=== PATIENT | female | born 1990 | race African-American/Black ===

== ENCOUNTER 2017-02-05 18:14 | Emergency (ER) | payer SELFPAY ==
[2017-02-05 18:22] VITALS: BP 116/68
[2017-02-05] MEDS ORDERED: Ibuprofen TAB* 400 MG PO ONE (19:25)
[2017-02-05] MEDS ORDERED: Ibuprofen ADULT LIQ* 600 MG/30 ML UDC PO ONE (19:26)
--- NOTE | 2017-02-05 19:29 | UC ---
Respiratory Complaint HPI - HPI Summary HPI Summary: 26 y/o female presents to the urgent care c/o productive cough, sore throat, ALEJO , body aches and chills since this morning. Pt reports sore throat is 9/10 with swallowing. she has not taking anything to alleviate symptoms. Mild fever this morning. The cough started about a week ago and it is now producing a green phlegm. Pt denies SOB, chest pain, N/V/D, abdominal pain, rash or HX of tick bites. she hasn't had the flu vaccine this year. - History of Current Complaint Chief Complaint: UCRespiratory Stated Complaint: CHILLS, HEADACHE, AND ACHES Time Seen by Provider: 02/05/17 18:33 Hx Obtained From: Patient Hx Last Menstrual Period: 01/24/2017 ?: No Onset/Duration: Gradual Onset, Lasting Weeks - 1 week, Worse Since - this morning Timing: Intermittent Episodes Severity Initially: Mild Severity Currently: Moderate Pain Intensity: 9 - sore throat Pain Scale Used: 0-10 Numeric Character: Cough: Productive, Sputum Description: - green sputum Aggravating Factors: Recumbent Position Alleviating Factors: Nothing Associated Signs And Symptoms: Positive: Fever, Chills, URI, Nasal Congestion. Negative: Pleuritic Chest Pain - Risk Factors Pulmonary Embolism Risk Factors: Negative Cardiac Risk Factors: Negative Pseudomonas Risk Factors: Negative Tuberculosis Risk Factors: Negative - Allergies/Home Medications Allergies/Adverse Reactions: Allergies Allergy/AdvReac Type Severity Reaction Status Date / Time Adhesive Tape Allergy Intermediate Rash Verified 02/05/17 18:22 PMH/Surg Hx/FS Hx/Imm Hx Previously Healthy: Yes Respiratory History: Pulmonary Embolism - 2012 - Surgical History Surgical History: Yes Surgery Procedure, Year, and Place: Dec 2010 - Family History Known Family History: Positive: Hypertension, Diabetes - Social History Occupation: Employed Full-time Lives: With Family Alcohol Use: Rare Substance Use Type: Marijuana Smoking Status (MU): Never Smoked Tobacco Review of Systems Constitutional: Fever, Chills Skin: Negative Eyes: Negative ENT: Sore Throat, Nasal Discharge Respiratory: Cough - productive with green sputum Cardiovascular: Negative Gastrointestinal: Negative Genitourinary: Negative Motor: Negative Neurovascular: Negative Musculoskeletal: Negative Neurological: Negative Psychological: Negative Is Patient Immunocompromised?: No All Other Systems Reviewed And Are Negative: Yes Physical Exam Triage Information Reviewed: Yes Vital Signs: Initial Vital Signs Temp 98.7 F 02/05/17 18:19 Pulse 107 02/05/17 18:19 Resp 18 02/05/17 18:19 BP 116/68 02/05/17 18:19 Pulse Ox 100 02/05/17 18:19 - Additional Comments Vital Signs Reviewed: Yes General: well developed, well nourished female sitting in the examining table w/ o any apparent distress Eyes: Positive: Conjunctiva Clear - PERRLA, EOMI, fundi grossly normal ENT: Positive: Normal ENT inspection, Hearing grossly normal, Pharynx normal, Nasal congestion - edematous and erythematous nasal mucosa, Nasal drainage - yellowish drainage, TMs normal. Negative: Tonsillar swelling, Tonsillar exudate Neck: Positive: Supple, Nontender, No Lymphadenopathy Respiratory: no orthopnea or dyspnea. Able to speak in full sentences, no retractions or accessory muscle use, no tripod position, stridor, or head bobbing. breath sound presents, B/L mild rhonchi in the posterior upper lung, no wheezing or rales. Cardiovascular: Positive: RRR, No Murmur, Pulses Normal, Brisk Capillary Refill Abdomen Description: Positive: Nontender, No Organomegaly, Soft. Negative: CVA Tenderness (R), CVA Tenderness (L) Bowel Sounds: Positive: Present Musculoskeletal Exam: Normal Musculoskeletal: Positive: Strength Intact, ROM Intact, No Edema Neurological Exam: Normal Psychological Exam: Normal Skin Exam: Normal UC Diagnostic Evaluation - Laboratory O2 Sat by Pulse Oximetry: 100 Respiratory Course/Dx - Course Course Of Treatment: 26 y/o female presents to the urgent care c/o productive cough, sore throat, ALEJO, body aches and chills since this morning. Pt reports sore throat is 9/10 with swallowing. she has not taking anything to alleviate symptoms. Mild fever this morning. The cough started about a week ago and it is now producing a green phlegm. Pt denies SOB, chest pain, N/V/D, abdominal pain, rash or HX of tick bites. she hasn't had the flu vaccine this year.Hx obtained. Pt with scattered rochi in the posterior upper lungs on examination.Pt with Acute bronchitis on examination. Pt given Ibuprofen PO to alleviate pain at the clinic. pt tolerated well medication and pain decrease. Rapid strep: negative, Influenza A&B : negative. Pt Rx Z-felipe PO and Tessalon PO alleviate cough and Ibuprofen PO sot pharyngitis. Pt advised to increase fluid intake and eat well. if not improvement or worsening of symptoms to return to the urgent care or f/u with PCP for further management. pt understood and agreed with plan of care. - Differential Dx/Diagnosis Differential Diagnosis/HQI/PQRI: Asthma, Bronchitis, Pulmonary Edema, Influenza , Laryngitis, Lower Resp Infection, Sinusitis Provider Diagnoses: 1- Acute bronchitis. 2-Acute pharyngitis Discharge - Discharge Plan Condition: Stable Disposition: HOME Prescriptions: Azithromyxin FELIPE (NF) [Z-Felipe (Zithromax) 250 mg tabs #6] 2 tab PO .TODAY, THEN 1 DAILY #6 tab Benzonatate CAP* [Tessalon 100 MG CAP*] 100 mg PO TID PRN #15 cap PRN Reason: Cough Ibuprofen TAB* [Motrin TAB* 800 MG] 800 mg PO Q6H PRN #20 tab PRN Reason: Pain Patient Education Materials: Acute Bronchitis (ED) Referrals: [facility] [place] [facility] [Outside] - 3 Days Additional Instructions: 1-Please take full course of antibiotic to avoid resistance. 2-Take Tessalon PO tabs as directed to alleviate cough. Increase fluid intake, rest and eat well. 3- Take Ibuprofen PO q6-8hrs prn after meals to alleviate sore throat 3- If symptoms do not improve or worsen or your develop SOB with fever and please go immediately to the ER further evaluation and treatment. 4- F/u with your PCP in 2-3 days for further management if symptoms are not improving
--- NOTE | 2017-02-05 19:59 | RAD ---
HISTORY: Cough, fever COMPARISONS: February 02, 2011 VIEWS: 4: Frontal dual-energy and lateral views of the chest. FINDINGS: CARDIOMEDIASTINAL SILHOUETTE: The cardiomediastinal silhouette is normal. TOMMY: The tommy are normal. PLEURA: The costophrenic angles are sharp. No pleural abnormalities are noted. LUNG PARENCHYMA: The lungs are clear. ABDOMEN: The upper abdomen is clear. There is no subphrenic gas. BONES AND SOFT TISSUES: No bone or soft tissue abnormalities are noted. OTHER: None. IMPRESSION: NO ACTIVE CARDIOPULMONARY DISEASE.
== END 2017-02-05 20:17 | disposition home or self-care (01) ==
LOC: UCEAST 18:14
DX: J20.9 Acute bronchitis, unspecified (principal); J02.9 Acute pharyngitis, unspecified; Z32.02 Encounter for pregnancy test, result negative; Z86.711 Personal history of pulmonary embolism; Z91.048 Other nonmedicinal substance allergy status; F12.90 Cannabis use, unspecified, uncomplicated
CPT/HCPCS: 71020; 84702; 87502; 87651; 99212; A9270-GY; G0463

== ENCOUNTER 2017-11-09 14:13 | Emergency (ER) | payer OTHER ==
--- NOTE | 2017-11-09 16:30 | RAD ---
INDICATION: Right foot and ankle pain after twisting injury the previous night COMPARISON: None. TECHNIQUE: 3 views of the right ankle and 3 views of the right foot were obtained. FINDINGS: The bones are normal alignment. Joint spaces appear maintained. No fracture is seen. IMPRESSION: NO RADIOGRAPHICALLY APPARENT FRACTURE OR DISLOCATION OF THE RIGHT FOOT OR ANKLE. If the patient's symptoms persist, follow-up imaging is recommended.
--- NOTE | 2017-11-09 17:07 | ED ---
Lower Extremity - HPI Summary HPI Summary: This patient is a 27 year old F presenting to ED with a chief complaint of R foot swelling with pain since last night around 0000 s/p twisting her foot outwards. The patient rates the pain 6/10 in severity. Symptoms aggravated by ambulation. Symptoms alleviated by nothing. The patient reports she is unable to bear weight on her foot. - History of Current Complaint Chief Complaint: EDExtremityLower Stated Complaint: RIGHT FOOT INJURY Time Seen by Provider: 11/09/17 15:43 Hx Obtained From: Patient Hx Last Menstrual Period: 01/24/2017 Mechanism Of Injury: Twisted Onset of Pain: Immediate Onset/Duration: Still Present - since last night s/p twisting her foot Severity Initially: Moderate Severity Currently: Moderate Pain Intensity: 6 Pain Scale Used: 0-10 Numeric Timing: Constant, Lasting Days Location: Is Discrete @ - R foot Associated Signs And Symptoms: Positive: Swelling - with pain Aggravating Factor(s): Ambulation Alleviating Factor(s): Nothing Able to Bear Weight: No - Allergies/Home Medications Allergies/Adverse Reactions: Allergies Allergy/AdvReac Type Severity Reaction Status Date / Time Adhesive Tape Allergy Intermediate Rash Verified 02/05/17 18:22 PMH/Surg Hx/FS Hx/Imm Hx Endocrine/Hematology History: Denies: Hx Diabetes, Hx Thyroid Disease Cardiovascular History: Denies: Hx Hypertension Respiratory History: Denies: Hx Asthma, Hx Chronic Obstructive Pulmonary Disease (COPD) GI History: Denies: Hx Ulcer - Surgical History Surgery Procedure, Year, and Place: Dec 2010 Infectious Disease History: No Infectious Disease History: Denies: Hx Hepatitis, Hx Human Immunodeficiency Virus (HIV), Traveled Outside the [place] in Last 30 Days - Family History Known Family History: Positive: Hypertension, Diabetes - Social History Alcohol Use: Rare Substance Use Type: Reports: Marijuana Hx Tobacco Use: Yes Smoking Status (MU): Never Smoked Tobacco Review of Systems Negative: Fever Positive: Other - R foot swelling with pain All Other Systems Reviewed And Are Negative: Yes Physical Exam - Summary Physical Exam Summary: Appearance: The patient is well-nourished in no acute distress and in no acute pain. Skin: The skin is warm and dry and skin color reflects adequate perfusion. HEENT: The head is normocephalic and atraumatic. The pupils are equal and reactive. The conjunctivae are clear and without drainage. Nares are patent and without drainage. Mouth reveals moist mucous membranes and the throat is without erythema and exudate. The external ears are intact. The ear canals are patent and without drainage. The tympanic membranes are intact. Neck: The neck is supple with full range of motion and non-tender. There are no carotid bruits. There is no neck vein distension. Respiratory: Chest is non-tender. Lungs are clear to auscultation and breath sounds are symmetrical and equal. Cardiovascular: Heart is regular rate and rhythm. There is no murmur or rub auscultated. Pulses are symmetrical and equal. Abdomen: The abdomen is soft and non-tender. There are normal bowel sounds heard in all four quadrants and there is no organomegaly palpated. Musculoskeletal: There is no back tenderness noted. There is good capillary refill. There is no calf tenderness elicited. Tenderness to lateral border of her R foot. Neurological: Patient is alert and oriented to person, place and time. The patient has symmetrical motor strength in all four extremities. Cranial nerves are grossly intact. Deep tendon reflexes are symmetrical and equal in all four extremities. Psychiatric: The patient has an appropriate affect and does not exhibit any anxiety or depression. Triage Information Reviewed: Yes Vital Signs On Initial Exam: Initial Vitals Temp Pulse Resp BP Pulse Ox 96.9 F 87 14 113/80 97 11/09/17 14:17 11/09/17 14:17 11/09/17 14:17 11/09/17 14:17 11/09/17 14:17 Vital Signs Reviewed: Yes Diagnostics - Vital Signs Vital Signs Temp Pulse Resp BP Pulse Ox 11/09/17 14:17 96.9 F 87 14 113/80 97 - Laboratory Lab Statement: Any lab studies that have been ordered have been reviewed, and results considered in the medical decision making process. - Radiology R foot XR Radiology Interpretation Completed By: Radiologist - NO RADIOGRAPHICALLY APPARENT FRACTURE OR DISLOCATION OF THE RIGHT FOOT OR ANKLE. ED physician has reviewed this radiology report. R ankle XR Radiology Interpretation Completed By: Radiologist - NO RADIOGRAPHICALLY APPARENT FRACTURE OR DISLOCATION OF THE RIGHT FOOT OR ANKLE. ED physician has reviewed this radiology report. Lower Extremity Course/Dx - Course Course Of Treatment: Ms. Patel presented after having twisted her foot yesterday. She finds it hard to walk flat on her foot but is able to walk on her toes. She had mild tenderness and swelling on the lateral aspect of the foot and an x-ray was negative for fracture. She is placed in an Leonardo wrap and given crutches and recommended follow-up with her PCP. - Diagnoses Differential Diagnosis/HQI/PQRI: Positive: Other - foot sprain Provider Diagnoses: Foot sprain Discharge - Sign-Out/Discharge Documenting (check all that apply): Patient Departure - Discharge - Discharge Plan Condition: Stable Disposition: HOME Patient Education Materials: Crutch Instructions (ED), Foot Sprain (ED) Referrals: [facility] [Outside] (Please follow up with your primary care physician in 2-3 days.) Additional Instructions: Please follow up with your primary care physician in 2-3 days. RETURN TO THE ED FOR ANY NEW OR WORSENING SYMPTOMS. - Billing Disposition and Condition Condition: STABLE Disposition: Home - Attestation Statements Document Initiated by Scribe: Yes Documenting Scribe: Thor Lowe Provider For Whom Scribe is Documenting (Include Credential): Bryant Vee MD Scribe Attestation: Thor Daniels, scribed for Bryant Vee MD on 11/09/17 at 2111. Scribe Documentation Reviewed: Yes Provider Attestation: The documentation as recorded by the Thor pedro accurately reflects the service I personally performed and the decisions made by me, Bryant Vee MD
[2017-11-09 17:44] VITALS: BP 120/78
== END 2017-11-09 17:43 | disposition home or self-care (01) ==
LOC: ED 14:13
DX: S93.601A Unspecified sprain of right foot, initial encounter (principal); X50.1XXA Overexertion from prolonged static or awkward postures, initial encounter; Y93.9 Activity, unspecified; Y92.9 Unspecified place or not applicable; Z91.048 Other nonmedicinal substance allergy status
CPT/HCPCS: 99282

== ENCOUNTER 2017-12-30 16:56 | Emergency (ER) | payer OTHER ==
[2017-12-30 17:12] VITALS: BP 116/78
--- NOTE | 2017-12-30 17:15 | UC ---
Respiratory Complaint HPI - HPI Summary HPI Summary: 27 yo female presents with fever, sinus pain/pressure/congestion, post nasal drip, and dry cough for the last 4 days. She has felt feverish, but has not taken her temperature. She has been taking tylenol and ibuprofen with no relief of her symptoms. Denies chills, sore throat, SOB, chest pain, abdominal pain, n/ v. - History of Current Complaint Chief Complaint: UCRespiratory Stated Complaint: FEVER, HEADACHE, AND CHEST CONGESTION Time Seen by Provider: 12/30/17 17:14 Hx Obtained From: Patient Hx Last Menstrual Period: 12/16/17 Onset/Duration: Gradual Onset Severity Initially: Moderate Severity Currently: Moderate Pain Intensity: 7 Pain Scale Used: 0-10 Numeric Character: Cough: Nonproductive - Allergies/Home Medications Allergies/Adverse Reactions: Allergies Allergy/AdvReac Type Severity Reaction Status Date / Time Adhesive Tape Allergy Intermediate Rash Verified 12/30/17 17:12 PMH/Surg Hx/FS Hx/Imm Hx - Additional Past Medical History Additional PMH: PE - Surgical History Surgical History: Yes Surgery Procedure, Year, and Place: Dec 2010 - Family History Known Family History: Positive: Hypertension, Diabetes - Social History Occupation: Employed Full-time Lives: With Family Alcohol Use: Rare Substance Use Type: Marijuana Smoking Status (MU): Never Smoked Tobacco Review of Systems Constitutional: Negative Skin: Negative Eyes: Negative ENT: Nasal Discharge, Sinus Congestion, Sinus Pain/Tenderness Respiratory: Cough Cardiovascular: Negative Gastrointestinal: Negative Neurovascular: Negative Musculoskeletal: Negative Neurological: Negative Psychological: Negative All Other Systems Reviewed And Are Negative: Yes Physical Exam - Summary Physical Exam Summary: GENERAL: NAD. WDWN. No pain distress. SKIN: No rashes, sores, lesions, or open wounds. HEENT: Head: AT/NC Eyes: EOM intact. Conjunctiva clear without inflammation or discharge. Ears: Hearing grossly normal. TMs intact, no bulging, erythema, or edema. Nose: Nasal mucosa mildly swollen and erythematous with yellow discharge. TTP maxillary and frontal sinus. Positive post nasal drip Throat: Posterior oropharynx without exudates, erythema, or tonsillar enlargement. Uvula midline. NECK: Supple. Nontender. No lymphadenopathy. CHEST: CTAB. No r/r/w. No accessory muscle use. Breathing comfortably and in no distress. CV: RRR. Without m/r/g. Pulses intact. NEURO: Alert. PSYCH: Age appropriate behavior. Triage Information Reviewed: Yes Vital Signs: Initial Vital Signs Temp 98.1 F 12/30/17 17:03 Pulse 88 12/30/17 17:03 Resp 18 12/30/17 17:03 BP 116/78 12/30/17 17:03 Pulse Ox 100 12/30/17 17:03 Vital Signs Reviewed: Yes Diagnostic Evaluation - Laboratory O2 Sat by Pulse Oximetry: 100 Respiratory Course/Dx - Course Course Of Treatment: Sinusitis - Differential Dx/Diagnosis Provider Diagnoses: sinusitis Discharge - Sign-Out/Discharge Documenting (check all that apply): Patient Departure All imaging exams completed and their final reports reviewed: No Studies - Discharge Plan Condition: Stable Disposition: HOME Prescriptions: Amoxicillin PO (*) [Amoxicillin 875 MG (*)] 875 mg PO BID #14 tab Patient Education Materials: Sinusitis (ED) Forms: *Work Release Referrals: No Primary Care Phys,NOPCP [Primary Care Provider] - Additional Instructions: If you develop a fever, shortness of breath, chest pain, new or worsening symptoms - please call your PCP or go to the ED. 1) Please try Mucinex over the counter in addition the tylenol and ibuprofen - Billing Disposition and Condition Condition: STABLE Disposition: Home - Attestation Statements Provider Attestation: Per institutional requirements, I have reviewed the chart, however, I was not consulted specifically or made aware of this patient by the midlevel provider. I did not personally evaluate, interact with , or disposition this patient.
== END 2017-12-30 17:25 | disposition home or self-care (01) ==
LOC: UCEAST 16:56
DX: J01.90 Acute sinusitis, unspecified (principal)
CPT/HCPCS: 99212; G0463

== ENCOUNTER → 2018-03-23 15:15 | Emergency (ER) | payer OTHER ==
[~2018-03-23 15:15] MED LIST: HYDROcodone/ACETAMIN 5-325 MG* 1 TAB PO ONE; Iohexol 300* (CONTRAST) 10 ML SDV IV ONE; NS 0.9% 1000 ML** 1,000 ML IV ONE; Ondansetron INJ* 2 MG/ML VIAL IV ONE; Ondansetron ODT TAB* 4 MG PO ONE; Potassium Chlor TAB* 20 MEQ TAB.ER PO ONE; Sulfamethox/Trimethoprim DS 800/160* TAB PO ONE
[2018-03-23 17:33] LABS: ALT 12 U/L (7-52); AST 16 U/L (13-39); Albumin 4.5 g/dL (3.2-5.2); Alkaline Phosphatase 73 U/L (34-104); Anion Gap 8 mmol/L (2-11); BUN/Creatinine Ratio 8.1 (8-20); Blood Urea Nitrogen 6 mg/dL (6-24); C Reactive Protein 106.02 mg/L (<8.01); CO2 Carbon Dioxide 26 mmol/L (22-32); Calcium 9.4 mg/dL (8.6-10.3); Chloride 101 mmol/L (101-111); EGFR African American 113.9 (>60); EGFR Non-African American 94.1 (>60); Globulin 4.4 g/dL (2-4); Glucose 104 mg/dL (70-100); HCG Pregnancy < 0.60 mIU/mL; Potassium 3.1 mmol/L (3.5-5.0); Sodium 135 mmol/L (135-145); Total Protein 8.9 g/dL (6.4-8.9)
[2018-03-23 17:44] LABS: Hematocrit 32 % (35-47); Hemoglobin 9.9 g/dl (12.0-16.0); Mean Corpuscular HGB Conc 31 g/dl (31-36); Mean Corpuscular Hemoglobin 19 pg (27-31); Mean Corpuscular Volume 60 fL (80-97); Mean Platelet Volume 8.8 fL (7.4-10.4); Platelet Count 210 10^3/ul (150-450); Red Cell Distribution Width 23 % (10.5-15); White Blood Count 18.7 10^3/ul (3.5-10.8)
[2018-03-23 17:47] LABS: Lymphocytes % 30 %; Monocytes % 5 %; Neutrophil % 65 %
[2018-03-23 17:48] LABS: Microcytosis 2+; Polychromasia 1+
[2018-03-23 17:50] LABS: ABS Basophils 0.1 10^3/ul (0-0.2); ABS Eosinophils 0 10^3/ul (0-0.6); ABS Lymphocytes 5.7 10^3/ul (1.0-4.8); ABS Monocytes 0.8 10^3/ul (0-0.8); ABS Neutrophils 12.1 10^3/ul (1.5-7.7); ABS Nucleated RBC 0 10^3/ul; Nucleated Red Blood Cells % 0.1
--- NOTE | 2018-03-23 19:09 | ED ---
Abdominal Pain/Female - HPI Summary HPI Summary: Patient is a 27 y/o F presenting to ED with complaints of abdominal pain. She states that pain onset three days at left side of abdomen and has since started to radiate to back and across upper abdomen. No diarrhea, but she endorses N/V. She reports increased frequency of urination and decreased appetite as well. Patient notes having a fever yesterday but states that it has since resolved. PSHx of section x4. On triage, pain is rated 8/10. Nothing is noted to aggravate/alleviate Sx. Home medications and allergies are reviewed. - History of Current Complaint Chief Complaint: EDAbdPain Stated Complaint: BI LATERAL FLANK PAIN Time Seen by Provider: 03/23/18 18:59 Hx Obtained From: Patient Hx Last Menstrual Period: 12/16/17 Onset/Duration: Lasting Days - three, Still Present, Resolved - fever Timing: Constant - three days Severity Currently: Severe - 8/10 Pain Intensity: 8 Pain Scale Used: 0-10 Numeric - 8/10 Location: Other - left side Radiates: Yes Radiates to: Back, Other - across upper abdomen Aggravating Factor(s): Nothing Alleviating Factor(s): Nothing Associated Signs and Symptoms: Positive: Fever - since resolved, Back Pain, Urinary Symptoms - increased frequency, Decreased Appetite, Nausea, Vomiting. Negative: Diarrhea Allergies/Adverse Reactions: Allergies Allergy/AdvReac Type Severity Reaction Status Date / Time Adhesive Tape Allergy Intermediate Rash Verified 03/23/18 15:27 Home Medications: Home Medications NK [No Home Medications Reported] 03/23/18 [History Confirmed 03/23/18] PMH/Surg Hx/FS Hx/Imm Hx Endocrine/Hematology History: Denies: Hx Diabetes, Hx Thyroid Disease Cardiovascular History: Denies: Hx Hypertension Respiratory History: Denies: Hx Asthma, Hx Chronic Obstructive Pulmonary Disease (COPD) GI History: Denies: Hx Ulcer - Surgical History Surgery Procedure, Year, and Place: Dec 2010 Infectious Disease History: No Infectious Disease History: Denies: Hx Hepatitis, Hx Human Immunodeficiency Virus (HIV), Traveled Outside the [place] in Last 30 Days - Family History Known Family History: Positive: Hypertension, Diabetes Negative: Cardiac Disease - Social History Alcohol Use: Rare Hx Substance Use: Yes Substance Use Type: Reports: Marijuana Hx Tobacco Use: Yes Smoking Status (MU): Never Smoked Tobacco Review of Systems Positive: Fever - since resolved Positive: Abdominal Pain - with radiation to back , Vomiting, Nausea, Other - POSITIVE - DECREASED APPETITE . Negative: Diarrhea Positive: frequency - increased All Other Systems Reviewed And Are Negative: Yes Physical Exam - Summary Physical Exam Summary: Appearance: Well appearing, no pain distress Skin: warm, dry, reflects adequate perfusion Head/face: normal Eyes: EOMI, ANDERS ENT: normal Neck: supple, non-tender Respiratory: CTA, breath sounds present Cardiovascular: RRR, pulses symmetrical Abdomen: RLQ tenderness, soft Musculoskeletal: normal, strength/ROM intact Neuro: normal, sensory motor intact, A&Ox3 Triage Information Reviewed: Yes Vital Signs On Initial Exam: Initial Vitals Temp Pulse Resp BP Pulse Ox 98.4 F 99 16 122/79 99 03/23/18 15:23 03/23/18 15:23 03/23/18 15:23 03/23/18 15:23 03/23/18 15:23 Vital Signs Reviewed: Yes Diagnostics - Vital Signs Vital Signs Temp Pulse Resp BP Pulse Ox 03/23/18 17:35 100 F 99 16 118/79 100 03/23/18 15:23 98.4 F 99 16 122/79 99 - Laboratory Lab Results: Lab Results 03/23/18 03/23/18 03/23/18 Range/Units 16:46 16:46 16:46 WBC 18.7 H (3.5-10.8) 10^3/ul RBC 5.30 (4.00-5.40) 10^6/ul Hgb 9.9 L (12.0-16.0) g/dl Hct 32 L (35-47) % MCV 60 L (80-97) fL MCH 19 L (27-31) pg MCHC 31 (31-36) g/dl RDW 23 H (10.5-15) % Plt Count 210 (150-450) 10^3/ul MPV 8.8 (7.4-10.4) fL Neut % (Auto) Not Reportable Lymph % (Auto) Not Reportable Collin % (Auto) Not Reportable Eos % (Auto) Not Reportable Baso % (Auto) Not Reportable Absolute Neuts (auto) 12.1 H (1.5-7.7) 10^3/ul Absolute Lymphs (auto) 5.7 H (1.0-4.8) 10^3/ul Absolute Monos (auto) 0.8 (0-0.8) 10^3/ul Absolute Eos (auto) 0 (0-0.6) 10^3/ul Absolute Basos (auto) 0.1 (0-0.2) 10^3/ul Absolute Nucleated RBC 0 10^3/ul Neutrophils % 65 % Lymphocytes % 30 % Monocytes % 5 % Nucleated RBC % 0.1 Normal RBC Morphology Not Reportable Polychromasia 1+ Anisocytosis 2+ Microcytosis 2+ Hem Pathologist Commnt Pending Sodium 135 (135-145) mmol/L Potassium 3.1 L (3.5-5.0) mmol/L Chloride 101 (101-111) mmol/L Carbon Dioxide 26 (22-32) mmol/L Anion Gap 8 (2-11) mmol/L BUN 6 (6-24) mg/dL Creatinine 0.74 (0.51-0.95) mg/dL Est GFR ( Amer) 113.9 (>60) Est GFR (Non-Af Amer) 94.1 (>60) BUN/Creatinine Ratio 8.1 (8-20) Glucose 104 H (70-100) mg/dL Lactic Acid 1.0 (0.5-2.0) mmol/L Calcium 9.4 (8.6-10.3) mg/dL Total Bilirubin 0.60 (0.2-1.0) mg/dL AST 16 (13-39) U/L ALT 12 (7-52) U/L Alkaline Phosphatase 73 (34-104) U/L C-Reactive Protein 106.02 H (<8.01) mg/L Total Protein 8.9 (6.4-8.9) g/dL Albumin 4.5 (3.2-5.2) g/dL Globulin 4.4 H (2-4) g/dL Albumin/Globulin Ratio 1.0 (1-3) Lipase < 10 L (11.0-82.0) U/L Beta HCG, Quant < 0.60 mIU/mL Result Diagrams: 03/23/18 16:46 03/23/18 16:46 Lab Statement: Any lab studies that have been ordered have been reviewed, and results considered in the medical decision making process. - Radiology CXR Radiology Interpretation Completed By: ED Physician Summary of Radiographic Findings: No acute disease, pending official report. Abdominal Pain Fem Course/Dx - Course Course Of Treatment: Patient is a 27 y/o F presenting to ED with complaints of abdominal pain. She states that pain onset three days at left side of abdomen and has since started to radiate to back and across upper abdomen. No diarrhea, but she endorses N/V. She reports increased frequency of urination and decreased appetite as well. Patient notes having a fever yesterday but states that it has since resolved. PSHx of section x4. On physical exam, RLQ tenderness is noted. CXR showed no acute disease, pending official report. Bloodwork was obtained. During ED course, patient received fluids, Klor Con Er Tab 40 meq PO, Zofran 4 mg IV. Patient is signed out to HAVEN Handley pending CT ABD/PEL, UA and disposition. - Diagnoses Provider Diagnoses: Abdominal pain Discharge - Sign-Out/Discharge Documenting (check all that apply): Sign-Out Patient Signing out patient TO: Sanket Handley Receiving patient FROM: Lois Quigley - Discharge Plan Condition: Stable Referrals: No Primary Care Phys,NOPCP [Primary Care Provider] - - Billing Disposition and Condition Condition: STABLE - Attestation Statements Document Initiated by Hortenciaibjaspal: Yes Documenting Scribe: WILSON KING Provider For Whom Shannon is Documenting (Include Credential): LOIS QUIGLEY MD Scribe Attestation: WILSON Daniels , scribed for LOIS QUIGLEY MD on 03/23/18 at 2139. Scribe Documentation Reviewed: Yes Provider Attestation: The documentation as recorded by the WILSON pedro accurately reflects the service I personally performed and the decisions made by , LOIS QUIGLEY MD Status of Scribe Document: Viewed
[2018-03-23 22:24] LABS: Urine Appearance Cloudy; Urine Bacteria 1+ (Absent); Urine Bilirubin Negative (Negative); Urine Blood Negative (Negative); Urine Color Yellow; Urine Glucose Negative (Negative); Urine Ketones Negative (Negative); Urine Nitrite Positive (Negative); Urine Protein 2+(100 mg/dL) (Negative); Urine Red Blood Cell Absent (Absent); Urine Specific Gravity 1.012 (1.010-1.030); Urine Squamous Epithelial Cell Present (Absent); Urine Urobilinogen Positive (Negative); Urine White Blood Cell 3+(>20/hpf) (Absent)
--- NOTE | 2018-03-23 22:56 | PN ---
Progress Note - Progress Note Date of Service: 03/23/18 Note: Patient signed out to me by Dr. Alberts pending results of urine analysis and CT abdomen. Positive UTI. Patient opted to defer CT abdomen and pelvis with contrast until after trial of antibiotics for UTI. Cultures pending. Rx for Bactrim, Phenergan and hydrocodone for abdominal pain. Vital signs within normal limits. Patient discharged in stable condition with diagnosis of UTI.
[2018-03-23 23:26] VITALS: BP 123/79
== END | disposition home or self-care (01) ==
LOC: ED 15:15
DX: R10.84 Generalized abdominal pain (principal); R50.9 Fever, unspecified; R11.2 Nausea with vomiting, unspecified
CPT/HCPCS: 36415; 71046; 80053; 81003; 81015; 83605; 83690; 84702; 85025; 85060; 86140; 87077; 87086; 87186; 96361; 96374; 96375; 99283; A9270-GY; J2405

== ENCOUNTER 2018-08-12 22:31 | Emergency (ER) | payer OTHER ==
[2018-08-12] MEDS ORDERED: Metoclopramide IV* 5 MG/ML 2 ML VIAL IV SLOW PU ONE (23:04)
[2018-08-12] MEDS ORDERED: NS 0.9% 1000 ML** 1,000 ML IV ONE (23:04)
[2018-08-12 23:23] LABS: Hematocrit 26 % (35-47); Hemoglobin 8.2 g/dL (12.0-16.0); Mean Corpuscular HGB Conc 32 g/dL (31-36); Mean Corpuscular Hemoglobin 18 pg (27-31); Mean Corpuscular Volume 56 fL (80-97); Mean Platelet Volume 8.7 fL (7.4-10.4); Platelet Count 149 10^3/uL (150-450); Red Blood Count 4.61 10^6 /uL (3.70-4.87); Red Cell Distribution Width 22 % (10-15); White Blood Count 10.7 10^3/uL (3.5-10.8)
[2018-08-12 23:32] LABS: ALT 10 U/L (7-52); AST 16 U/L (13-39); Albumin/Globulin Ratio 1.2 (1-3); Alkaline Phosphatase 54 U/L (34-104); Anion Gap 5 mmol/L (2-11); Blood Urea Nitrogen 10 mg/dL (6-24); C Reactive Protein < 1.00 mg/L (<8.01); CO2 Carbon Dioxide 28 mmol/L (22-32); Calcium 9.1 mg/dL (8.6-10.3); Chloride 106 mmol/L (101-111); EGFR Non-African American 81.9 (>60); Globulin 3.3 g/dL (2-4); Glucose 114 mg/dL (70-100); Potassium 3.3 mmol/L (3.5-5.0); Sodium 139 mmol/L (135-145); Total Protein 7.3 g/dL (6.4-8.9)
[2018-08-12 23:38] LABS: HCG Pregnancy < 0.60 mIU/mL
[2018-08-12] MEDS ORDERED: Pantoprazole IV* 40 MG IV ONE (23:40)
--- NOTE | 2018-08-13 00:14 | ED ---
GI/ HPI - HPI Summary HPI Summary: 28-year-old female presents with epigastric pain for the past week. She states she's been having nausea and vomiting. No diarrhea. Has not eating anything different. No one else is sick. She is concerned that she is . Denies any abnormal vaginal discharge. No vaginal bleeding. LMP was beginning of this month. She denies any blood or dark tarry stool. Pain does not radiate anywhere. States pain is achy pain. - History of Current Complaint Chief Complaint: EDAbdPain Time Seen by Provider: 08/12/18 22:54 Stated Complaint: ABD PAIN/VOMITING PER PT Hx Last Menstrual Period: 12/16/17 Pain Intensity: 4 - Allergy/Home Medications Allergies/Adverse Reactions: Allergies Allergy/AdvReac Type Severity Reaction Status Date / Time Adhesive Tape Allergy Intermediate Rash Verified 03/23/18 15:27 PMH/Surg Hx/FS Hx/Imm Hx Endocrine/Hematology History: Denies: Hx Diabetes, Hx Thyroid Disease Cardiovascular History: Denies: Hx Hypertension Respiratory History: Denies: Hx Asthma, Hx Chronic Obstructive Pulmonary Disease (COPD) GI History: Denies: Hx Ulcer History: Denies: Hx Renal Disease - Surgical History Surgery Procedure, Year, and Place: Dec 2010 - Immunization History Immunizations Up to Date: Yes Infectious Disease History: No Infectious Disease History: Denies: Hx Hepatitis, Hx Human Immunodeficiency Virus (HIV), Traveled Outside the [place] in Last 30 Days - Family History Known Family History: Positive: Hypertension, Diabetes Negative: Cardiac Disease - Social History Alcohol Use: Rare Hx Substance Use: Yes Substance Use Type: Reports: Marijuana Hx Tobacco Use: Yes Smoking Status (MU): Never Smoked Tobacco Review of Systems Negative: Fever Negative: Chest Pain Negative: Shortness Of Breath Positive: Abdominal Pain, Vomiting, Nausea. Negative: Diarrhea All Other Systems Reviewed And Are Negative: Yes Physical Exam Triage Information Reviewed: Yes Vital Signs On Initial Exam: Initial Vitals Temp Pulse Resp BP Pulse Ox 97.7 F 105 18 136/85 99 08/12/18 22:41 08/12/18 22:41 08/12/18 22:41 08/12/18 22:41 08/12/18 22:41 Vital Signs Reviewed: Yes Appearance: Positive: Well-Appearing Skin: Positive: Warm, Dry Head/Face: Positive: Normal Head/Face Inspection Eyes: Positive: Normal, Conjunctiva Clear ENT: Positive: Pharynx normal Respiratory/Lung Sounds: Positive: Clear to Auscultation, Breath Sounds Present Cardiovascular: Positive: Normal, RRR Abdomen Description: Positive: Soft, Other: - tenderness epigastric, nontender RUQ Bowel Sounds: Positive: Present Musculoskeletal: Positive: Normal Neurological: Positive: Normal Psychiatric: Positive: Normal Diagnostics - Vital Signs Vital Signs Temp Pulse Resp BP Pulse Ox 08/13/18 00:00 72 99 08/12/18 23:52 68 126/81 100 08/12/18 23:22 74 131/86 100 08/12/18 23:00 74 99 08/12/18 22:52 84 127/75 99 08/12/18 22:51 86 99 08/12/18 22:41 97.7 F 105 18 136/85 99 - Laboratory Lab Results: Lab Results 08/12/18 08/12/18 Range/Units 23:07 23:07 WBC 10.7 (3.5-10.8) 10^3/uL RBC 4.61 (3.70-4.87) 10^6 /uL Hgb 8.2 L (12.0-16.0) g/dL Hct 26 L (35-47) % MCV 56 L (80-97) fL MCH 18 L (27-31) pg MCHC 32 (31-36) g/dL RDW 22 H (10-15) % Plt Count 149 L (150-450) 10^3/uL MPV 8.7 (7.4-10.4) fL Neut % (Auto) Pending Lymph % (Auto) Pending Kidder % (Auto) Pending Eos % (Auto) Pending Baso % (Auto) Pending Absolute Neuts (auto) Pending Absolute Lymphs (auto) Pending Absolute Monos (auto) Pending Absolute Eos (auto) Pending Absolute Basos (auto) Pending Absolute Nucleated RBC Pending Nucleated RBC % Pending Sodium 139 (135-145) mmol/L Potassium 3.3 L (3.5-5.0) mmol/L Chloride 106 (101-111) mmol/L Carbon Dioxide 28 (22-32) mmol/L Anion Gap 5 (2-11) mmol/L BUN 10 (6-24) mg/dL Creatinine 0.83 (0.51-0.95) mg/dL Est GFR ( Amer) 99.0 (>60) Est GFR (Non-Af Amer) 81.9 (>60) BUN/Creatinine Ratio 12.0 (8-20) Glucose 114 H (70-100) mg/dL Calcium 9.1 (8.6-10.3) mg/dL Total Bilirubin 0.40 (0.2-1.0) mg/dL AST 16 (13-39) U/L ALT 10 (7-52) U/L Alkaline Phosphatase 54 (34-104) U/L C-Reactive Protein < 1.00 (<8.01) mg/L Total Protein 7.3 (6.4-8.9) g/dL Albumin 4.0 (3.2-5.2) g/dL Globulin 3.3 (2-4) g/dL Albumin/Globulin Ratio 1.2 (1-3) Lipase 19 (11.0-82.0) U/L Beta HCG, Quant < 0.60 mIU/mL Result Diagrams: 08/12/18 23:07 08/12/18 23:07 Lab Statement: Any lab studies that have been ordered have been reviewed, and results considered in the medical decision making process. Re-Evaluation - Re-Evaluation First Eval Re-Evaluation Time: 00:10 Change: Improved Comment: pain better GIGU Course/Dx - Course Course Of Treatment: 28-year-old female presents with epigastric pain for the past week. She states she's been having nausea and vomiting. No diarrhea. Has not eating anything different. No one else is sick. She is concerned that she is . Denies any abnormal vaginal discharge. No vaginal bleeding. LMP was beginning of this month. She denies any blood or dark tarry stool. Pain does not radiate anywhere. States pain is achy pain. On exam tenderness left upper quadrant. wbc normal. crp normal. hemoglobin 8 and patient states has anemia and is suppose to take iron but is not take it. Told to continue iron. Patient is not . Gave Reglan and omeprazole and feeling better. We'll give Zofran omeprazole to take at home. Told to follow with GI if no improvement. Patient understands agrees with plan. - Diagnoses Differential Diagnoses - Female: Gastritis, Gastroenteritis (Viral), , Urinary Tract Infection Provider Diagnoses: Epigastric pain Discharge - Sign-Out/Discharge Documenting (check all that apply): Patient Departure Patient Received Moderate/Deep Sedation with Procedure: No - Discharge Plan Condition: Good Disposition: HOME Prescriptions: Omeprazole CAP(NF) [PriLOSEC CAP(NF)] 10 mg PO DAILY #14 cap Ondansetron ODT TAB* [Zofran 4 MG Odt TAB*] 4 mg PO Q6H PRN #20 tab.odt PRN Reason: Pain Patient Education Materials: Epigastric Pain (ED) Referrals: No Primary Care Phys,NOPCP [Primary Care Provider] - Judy Suarez MD [Medical Doctor] - Additional Instructions: Take omeprazole once a day Take Zofran every 6 hours as needed for nausea Avoid acidic foods Stay upright for at least 30 mins after eating Follow up with GI if no improvement Return to ED if develop any new or worsening symptoms - Billing Disposition and Condition Condition: GOOD Disposition: Home
[2018-08-13 00:29] LABS: ABS Basophils 0.1 10^3/ul (0-0.2); ABS Eosinophils 0.1 10^3/ul (0-0.6); ABS Lymphocytes 4.7 10^3/ul (1.0-4.8); ABS Monocytes 0.4 10^3/ul (0-0.8); ABS Neutrophils 5.4 10^3/ul (1.5-7.7); Eosinophil % 0.7 %; Lymphocyte % 44.3 %; Nucleated Red Blood Cells % 0.1
[2018-08-13 00:37] VITALS: BP 141/98
== END 2018-08-13 00:36 | disposition home or self-care (01) ==
LOC: ED 22:31
DX: R10.13 Epigastric pain (principal); R11.2 Nausea with vomiting, unspecified; Z32.02 Encounter for pregnancy test, result negative; Z91.048 Other nonmedicinal substance allergy status
CPT/HCPCS: 36415; 80053; 83690; 84702; 85025; 86140; 96374; 96375; 99282; J2765

== ENCOUNTER 2018-08-23 18:45 | Emergency (ER) | payer OTHER ==
--- NOTE | 2018-08-23 20:34 | ED ---
Abdominal Pain/Female - HPI Summary HPI Summary: This patient is a 28 year old F presenting to ED with a chief complaint of RUQ abdominal pain since three weeks ago. Patient was seen in the ER last week for N /V but has new pain starting yesterday in the RUQ radiating to the side and back. Patient still has her appendix. She is not on control or contraceptives. The patient rates the pain 4/10 in severity. Symptoms aggravated by nothing. Symptoms alleviated by nothing. Patient reports N/V, chills. Patient denies fever, diarrhea, vaginal bleeding. - History of Current Complaint Chief Complaint: EDAbdPain Stated Complaint: STOMACH PAIN PER PT Time Seen by Provider: 08/23/18 20:30 Hx Obtained From: Patient Hx Last Menstrual Period: 12/16/17 Onset/Duration: Sudden Onset, Lasting Weeks - 3 weeks, Still Present, Worse Since - New pain radiating beginning yesterday Timing: Constant Severity Initially: Mild Severity Currently: Moderate Pain Intensity: 4 Pain Scale Used: 0-10 Numeric Location: Discrete At: RUQ, Discrete At: RLQ Radiates: Yes Radiates to: Back Aggravating Factor(s): Nothing Alleviating Factor(s): Nothing Associated Signs and Symptoms: Positive: Nausea, Vomiting. Negative: Fever, Vaginal Bleeding, Diarrhea Allergies/Adverse Reactions: Allergies Allergy/AdvReac Type Severity Reaction Status Date / Time Adhesive Tape Allergy Intermediate Rash Verified 03/23/18 15:27 PMH/Surg Hx/FS Hx/Imm Hx Previously Healthy: No Endocrine/Hematology History: Denies: Hx Diabetes, Hx Thyroid Disease Cardiovascular History: Denies: Hx Hypertension Respiratory History: Denies: Hx Asthma, Hx Chronic Obstructive Pulmonary Disease (COPD) GI History: Denies: Hx Ulcer History: Denies: Hx Renal Disease - Surgical History Surgery Procedure, Year, and Place: Dec 2010 Infectious Disease History: No Infectious Disease History: Denies: Hx Hepatitis, Hx Human Immunodeficiency Virus (HIV), Traveled Outside the [place] in Last 30 Days - Family History Known Family History: Positive: Hypertension, Diabetes Negative: Cardiac Disease - Social History Alcohol Use: Rare Hx Substance Use: Yes Substance Use Type: Reports: Marijuana Hx Tobacco Use: Yes Smoking Status (MU): Never Smoked Tobacco Review of Systems Negative: Fever Positive: Abdominal Pain - RUQ, RLQ, Vomiting, Nausea. Negative: Diarrhea Genitourinary: Negative - Vaginal bleeding All Other Systems Reviewed And Are Negative: Yes Physical Exam - Summary Physical Exam Summary: Appearance: Well appearing, no pain distress Skin: warm, dry, reflects adequate perfusion Head/face: normal Eyes: EOMI, ANDERS ENT: normal Neck: supple, non-tender Respiratory: CTA, breath sounds present Cardiovascular: RRR, pulses symmetrical Abdomen: RUQ, RLQ tenderness, pustule in right flank area Musculoskeletal: normal, strength/ROM intact Neuro: normal, sensory motor intact, A&Ox3 Triage Information Reviewed: Yes Vital Signs On Initial Exam: Initial Vitals Temp Pulse Resp BP Pulse Ox 97.5 F 113 18 111/79 100 08/23/18 18:46 08/23/18 18:46 08/23/18 18:46 08/23/18 18:46 08/23/18 18:46 Vital Signs Reviewed: Yes Diagnostics - Vital Signs Vital Signs Temp Pulse Resp BP Pulse Ox 08/23/18 18:46 97.5 F 113 18 111/79 100 - Laboratory Result Diagrams: 08/23/18 20:38 08/23/18 20:38 Lab Statement: Any lab studies that have been ordered have been reviewed, and results considered in the medical decision making process. - Radiology CXR Radiology Interpretation Completed By: ED Physician Summary of Radiographic Findings: No acute processes, pending official radiology report. - CT A/P CT Interpretation Completed By: Radiologist Summary of CT Findings: No CT findings to correlate with patient's symptomatology. Specifically no obstructing renal or ureteral calculi. Dr. Alberts has reviewed this radiology report. Re-Evaluation - Re-Evaluation First Eval Re-Evaluation Time: 23:12 Comment: Discussed results with pt. Patient will be discharged with dx of right flank pain and cellulitis of right flank. Patient understands and agrees with this plan. Abdominal Pain Fem Course/Dx - Course Course Of Treatment: This patient is a 28 year old F presenting to ED with a chief complaint of RUQ abdominal pain since three weeks ago worsening last night. Blood work and UA obtained. CT A/P revealed no CT findings to correlate with patient's symptomatology. Specifically no obstructing renal or ureteral calculi. CXR revealed no acute processes, pending official radiology report. Patient will be discharged with dx of right flank pain and cellulitis of right flank. Patient understands and agrees with this plan. - Diagnoses Differential Diagnosis: Positive: Renal Colic, Urinary Tract Infection, Other Provider Diagnoses: Right flank pain, Cellulitis, Anemia Discharge - Sign-Out/Discharge Documenting (check all that apply): Patient Departure - Discharge Patient Received Moderate/Deep Sedation with Procedure: No - Discharge Plan Condition: Stable Disposition: HOME Prescriptions: Ibuprofen TAB* [Motrin TAB* 600 MG] 600 mg PO Q8H PRN #15 tab MDD 3 PRN Reason: Pain Sulfamethox/Trimethoprim DS* [Bactrim DS 800/160 TAB*] 1 tab PO BID #20 tab Patient Education Materials: Cellulitis (ED), Flank Pain (ED) Referrals: [facility] [place] [facility] REFERRAL [Outside] - 3 Days Additional Instructions: Follow-up with your primary care provider in three days. RETURN TO THE ER FOR WORSENING OR CHANGING SYMPTOMS. - Billing Disposition and Condition Condition: STABLE Disposition: Home - Attestation Statements Document Initiated by Scribe: Yes Documenting Scribe: Jose Arias Provider For Whom Scribe is Documenting (Include Credential): Nick Alberts MD Scribe Attestation: Jose Daniels, scribed for Nick Alberts MD on 08/23/18 at 2334. Scribe Documentation Reviewed: Yes Provider Attestation: The documentation as recorded by the Jose pedro accurately reflects the service I personally performed and the decisions made by Nick dyer MD Status of Scribe Document: Viewed
[2018-08-23 21:02] LABS: Activated Partial Thrombo Time 33.8 seconds (26.0-38.0); INR 1.09 (0.82-1.09)
[2018-08-23 21:04] LABS: Hematocrit 28 % (35-47); Hemoglobin 8.8 g/dL (12.0-16.0); Mean Corpuscular HGB Conc 32 g/dL (31-36); Mean Corpuscular Hemoglobin 18 pg (27-31); Mean Corpuscular Volume 56 fL (80-97); Red Blood Count 5.01 10^6 /uL (3.70-4.87); Red Cell Distribution Width 24 % (10-15); White Blood Count 11.9 10^3/uL (3.5-10.8)
[2018-08-23 21:10] LABS: ALT 11 U/L (7-52); AST 15 U/L (13-39); Albumin/Globulin Ratio 1.2 (1-3); Alkaline Phosphatase 59 U/L (34-104); Anion Gap 5 mmol/L (2-11); BUN/Creatinine Ratio 10.8 (8-20); Blood Urea Nitrogen 8 mg/dL (6-24); CO2 Carbon Dioxide 26 mmol/L (22-32); Chloride 106 mmol/L (101-111); EGFR African American 113.1 (>60); EGFR Non-African American 93.5 (>60); Globulin 3.4 g/dL (2-4); Glucose 78 mg/dL (70-100); Potassium 3.8 mmol/L (3.5-5.0); Sodium 137 mmol/L (135-145); Total Protein 7.4 g/dL (6.4-8.9)
[2018-08-23 21:14] LABS: HCG Pregnancy < 0.60 mIU/mL
[2018-08-23 22:12] LABS: ABS Basophils 0.1 10^3/ul (0-0.2); ABS Eosinophils 0.1 10^3/ul (0-0.6); ABS Lymphocytes 1.7 10^3/ul (1.0-4.8); ABS Monocytes 0.8 10^3/ul (0-0.8); ABS Neutrophils 9.3 10^3/ul (1.5-7.7); Lymphocyte % 13.9 %; Nucleated Red Blood Cells % 0.1; Platelet Count 178 10^3/uL (150-450)
[2018-08-23 23:02] LABS: Urine Appearance Cloudy; Urine Bacteria Absent (Absent); Urine Bilirubin Negative (Negative); Urine Blood Negative (Negative); Urine Color Yellow; Urine Glucose Negative (Negative); Urine Ketones Negative (Negative); Urine Nitrite Negative (Negative); Urine Protein Negative (Negative); Urine Red Blood Cell Absent (Absent); Urine Squamous Epithelial Cell Present (Absent); Urine Urobilinogen Negative (Negative); Urine White Blood Cell Trace(0-5/hpf) (Absent)
[2018-08-23] MEDS ORDERED: Sulfamethox/Trimethoprim DS 800/160* TAB PO ONE (23:14)
[2018-08-23 23:35] VITALS: BP 124/86
== END 2018-08-23 23:34 | disposition home or self-care (01) ==
LOC: ED 18:45
DX: L03.311 Cellulitis of abdominal wall (principal); D64.9 Anemia, unspecified
CPT/HCPCS: 36415; 71046; 74176; 80053; 81003; 81015; 83690; 84702; 85025; 85610; 85730; 87086; 99282; A9270-GY